=== PATIENT | female | born 2000 | race Two or more races ===

== ENCOUNTER 2024-01-17 14:33 | Emergency (ER) | payer OTHER ==
[~2024-01-17] VITALS: Ht 162.6 cm; Wt 67.6 kg
[~2024-01-17 14:33] MED LIST: ONDANSETRON ODT8 MG PO; PEPCID AC20 MG PO; ZOLOFT50 MG PO
[2024-01-17 15:22] LABS: HEMATOCRIT 40.2 % (36.0-45.00); HEMOGLOBIN 13.7 g/dL (12.0-15.00); MEAN CELL VOLUME 82.6 fL (80.00-100.00); MEAN CORPUSCULAR HEMOGLOBIN 28.2 pg (27.00-32.0); MEAN CORPUSCULAR HGB CONC 34.2 g/dl (32.0-36.0); PLATELET COUNT 292 K/uL (150-450); RED BLOOD COUNT 4.86 M/uL (4.00-6.00); RED CELL DISTRIBUTION WIDTH 12.6 % (11.5-14.5)
[2024-01-17 15:30] LABS: PH,URINE 6.5 (5.0-8.0); URINE APPEARANCE Clear; URINE BILIRRUBIN Negative (NEGATIVE); URINE BLOOD Negative; URINE COLOR Yellow; URINE GLUCOSE Negative (NEGATIVE); URINE LEUKOCYTE Trace; URINE NITRATE Negative; URINE PROTEIN Negative (NEGATIVE); URINE UROBILINOGEN 0.2 E.U./dl
[2024-01-17 15:32] LABS: URINE BACTERIA 437.1 uL (0.0-1933); URINE EPITHELIAL CELLS 22.4 uL (0.0-38.8); URINE RBC 10.5 uL (0.0-20.8)
[2024-01-17 15:58] LABS: ALBUMIN 3.8 gm/dL (3.4-5.0); ALKALINE PHOSPHATASE 118 U/L (50-136); ALT/SGPT 21 U/L (12-78); ANION GAP 12 (10.0-20.0); AST/SGOT 12 U/L (15-37); BILIRUBIN TOTAL 0.46 mg/dL (0.3-1.2); BLOOD UREA NITROGEN 8 mg/dL (7-18); BUN CREA RATIO 13 (7.0-25.0); CALCIUM 8.8 mg/dL (8.5-10.1); CARBON DIOXIDE 29 mEq/L (21-32); CHLORIDE 105 mmol/L (98-107); CREATININE SERUM 0.63 mg/dL (0.55-1.02); GLOBULINA 4.4 G/DL (2.4-3.5); GLUCOSE FASTING 92 mg/dL (65-100); OSMOLALITY SERUM 283 MOSM/KG (275-295); POTASSIUM 3.34 mEq/L (3.5-5.1); SODIUM 143 mmol/L (136-145); TOTAL PROTEIN 8.2 gm/dL (6.4-8.2)
[2024-01-17 16:03] LABS: HCG QUANTITATIVE < 1 mUI/mL (1-3)
== END 2024-01-17 15:39 | disposition home or self-care (01) ==
LOC: ER 14:33
PROVIDERS: Emergency Medicine
DX: K21.9 Gastro-esophageal reflux disease without esophagitis (principal); Z88.2 Allergy status to sulfonamides; F41.8 Other specified anxiety disorders

== ENCOUNTER 2024-03-28 01:15 | Outpatient (CLI) | payer OTHER | END 2024-03-28 02:00 | disposition home or self-care (01) | LOC: PPH VACUNA 01:15 | PROVIDERS: ATTEND Emergency Medicine Pediatric Emergency Medicine | DX: Z23 Encounter for immunization (principal) ==

== ENCOUNTER 2024-03-31 19:01 | Emergency (ER) | payer OTHER ==
[~2024-03-31] VITALS: Ht 162.6 cm; Wt 70.3 kg
[2024-03-31] MEDS ORDERED: ACYCLOVIR 800 MG TABLET PO STA (19:09)
== END 2024-03-31 20:52 | disposition home or self-care (01) ==
LOC: ER 19:02
DX: B00.89 Other herpesviral infection (principal); Z88.2 Allergy status to sulfonamides

== ENCOUNTER 2024-04-18 15:38 | Emergency (ER) | payer OTHER ==
[~2024-04-18] VITALS: Ht 162.6 cm; Wt 68.9 kg
[2024-04-18 15:43] VITALS: BP 104/73; O2SAT 99
[2024-04-18 16:40] LABS: HEMATOCRIT 40.6 % (36.0-45.00); HEMOGLOBIN 13.9 g/dL (12.0-15.00); MEAN CELL VOLUME 83.4 fL (80.00-100.00); MEAN CORPUSCULAR HEMOGLOBIN 28.4 pg (27.00-32.0); MEAN CORPUSCULAR HGB CONC 34.1 g/dl (32.0-36.0); PLATELET COUNT 262 K/uL (150-450); RED BLOOD COUNT 4.87 M/uL (4.00-6.00); RED CELL DISTRIBUTION WIDTH 12.3 % (11.5-14.5)
[2024-04-18] MEDS ORDERED: KETOROLAC TROMETHAMINE 60 MG VIAL IM ONE (16:45)
[2024-04-18] MEDS ORDERED: 0.9 % SODIUM CHLORIDE 1,000 ML IV ONE (16:45)
[2024-04-18 17:30] LABS: ALKALINE PHOSPHATASE 80 U/L (50-136); ALT/SGPT 15 U/L (12-78); ANION GAP 9 (10.0-20.0); AST/SGOT 13 U/L (15-37); BILIRUBIN TOTAL 0.79 mg/dL (0.3-1.2); BLOOD UREA NITROGEN 12 mg/dL (7-18); BUN CREA RATIO 17 (7.0-25.0); CALCIUM 9.1 mg/dL (8.5-10.1); CARBON DIOXIDE 28 mEq/L (21-32); CHLORIDE 106 mmol/L (98-107); GLOBULINA 4.2 G/DL (2.4-3.5); GLUCOSE FASTING 80 mg/dL (65-100); OSMOLALITY SERUM 276 MOSM/KG (275-295); POTASSIUM 3.84 mEq/L (3.5-5.1); SODIUM 139 mmol/L (136-145); TOTAL PROTEIN 8.2 gm/dL (6.4-8.2)
[2024-04-18 17:44] LABS: HCG QUANTITATIVE < 1 mUI/mL (1-3)
[2024-04-18 17:47] LABS: URINE APPEARANCE Turbid; URINE BILIRRUBIN Small (NEGATIVE); URINE BLOOD Moderate; URINE COLOR Orange; URINE GLUCOSE Negative (NEGATIVE); URINE KETONE 15 (NEGATIVE); URINE LEUKOCYTE Trace; URINE NITRATE Negative; URINE PROTEIN Trace (NEGATIVE)
[2024-04-18 17:50] LABS: URINE BACTERIA 2256.6 uL (0.0-1933); URINE WBC 43.5 uL (0.0-23.2)
[2024-04-18 18:33] LABS: URINE CAST 1.06 uL (0.0-1.40); URINE CRYSTALS MANY /HPF
[2024-04-18] MEDS ORDERED: KETO10TA2 PO (20:32)
== END 2024-04-18 21:25 | disposition home or self-care (01) ==
LOC: ER 15:39
PROVIDERS: General Practice
DX: R10.2 Pelvic and perineal pain (principal); Z88.2 Allergy status to sulfonamides

== ENCOUNTER 2024-06-15 06:17 | Emergency (ER) | payer OTHER ==
[~2024-06-15] VITALS: Ht 162.6 cm; Wt 68.0 kg
[~2024-06-15 06:17] MED LIST changes: +KETO10TA2 PO
[2024-06-15] MEDS ORDERED: KETOROLAC TROMETHAMINE 60 MG VIAL IM STA (06:39)
[2024-06-15] MEDS ORDERED: ACETAMINOPHEN 500 MG GEL..CAP PO STA (06:39)
[2024-06-15 08:12] LABS: URINE APPEARANCE Cloudy; URINE BILIRRUBIN Negative (NEGATIVE); URINE BLOOD Large; URINE COLOR Dark Yellow; URINE GLUCOSE Negative (NEGATIVE); URINE KETONE Trace (NEGATIVE); URINE LEUKOCYTE Trace; URINE NITRATE Negative; URINE PROTEIN 30 (NEGATIVE); URINE UROBILINOGEN 0.2 E.U./dl
[2024-06-15 08:13] LABS: URINE RBC 262.6 uL (0.0-20.8); URINE WBC 37.6 uL (0.0-23.2)
[2024-06-15 08:17] LABS: HEMATOCRIT 42.2 % (36.0-45.00); HEMOGLOBIN 13.8 g/dL (12.0-15.00); MEAN CELL VOLUME 85.8 fL (80.00-100.00); MEAN CORPUSCULAR HEMOGLOBIN 28.2 pg (27.00-32.0); MEAN CORPUSCULAR HGB CONC 32.8 g/dl (32.0-36.0); PLATELET COUNT 303 K/uL (150-450); RED BLOOD COUNT 4.92 M/uL (4.00-6.00); RED CELL DISTRIBUTION WIDTH 12.4 % (11.5-14.5)
[2024-06-15 09:29] LABS: URINE CAST 0.44 uL (0.0-1.40)
== END 2024-06-15 08:22 | disposition home or self-care (01) ==
LOC: ER 06:17
DX: R10.2 Pelvic and perineal pain (principal); Z88.2 Allergy status to sulfonamides

== ENCOUNTER 2024-07-02 13:27 | Outpatient (CLI) | payer OTHER ==
[2024-07-02 14:15] LABS: HEMATOCRIT 40.1 % (36.0-45.00); HEMOGLOBIN 13.1 g/dL (12.0-15.00); MEAN CORPUSCULAR HEMOGLOBIN 28.2 pg (27.00-32.0); MEAN CORPUSCULAR HGB CONC 32.8 g/dl (32.0-36.0); PLATELET COUNT 263 K/uL (150-450); RED BLOOD COUNT 4.67 M/uL (4.00-6.00); RED CELL DISTRIBUTION WIDTH 12.4 % (11.5-14.5)
[2024-07-02 14:33] LABS: INR 0.98; PARTIAL THROMBOPLASTIN TIME 27.7 SECONDS (22.0-34.0); PROTHROMBIN TIME 10.7 SECONDS (9.0-11.5)
[2024-07-02 14:48] LABS: ALBUMIN 3.5 gm/dL (3.4-5.0); BILIRUBIN TOTAL 0.44 mg/dL (0.3-1.2); CALCIUM 8.7 mg/dL (8.5-10.1); CHOL HDL RATIO 3.9 (0-5.0); CREATININE SERUM 0.62 mg/dL (0.55-1.02); GFR 118.26; GLOBULINA 3.8 G/DL (2.4-3.5); POTASSIUM 3.83 mEq/L (3.5-5.1); TOTAL PROTEIN 7.3 gm/dL (6.4-8.2); TSH 1.75 uIU/mL (0.358-3.74)
== END 2024-07-02 13:32 | disposition home or self-care (01) ==
LOC: LAB 13:27
DX: R10.2 Pelvic and perineal pain (principal); R10.9 Unspecified abdominal pain

== ENCOUNTER 2024-07-07 05:11 | Emergency (ER) | payer OTHER ==
[~2024-07-07] VITALS: Ht 162.6 cm; Wt 68.0 kg
[2024-07-07] MEDS ORDERED: 0.9 % SODIUM CHLORIDE 1,000 ML IV STA (05:37)
[2024-07-07] MEDS ORDERED: FAMOtidine 10 MG/ML (4ML VIAL) IV PUSH STA (05:38)
[2024-07-07] MEDS ORDERED: MEPERIDINE HCL 25 MG/ML AMPUL IM STA (05:38)
[2024-07-07] MEDS ORDERED: PROMETHAZINE HCL 50 MG/ML AMPUL IM STA (05:38)
[2024-07-07] MEDS ORDERED: KETOROLAC TROMETHAMINE 30 MG VIAL IV STA (05:40)
[2024-07-07] MEDS ORDERED: HYOSCYAMINE SULFATE 0.125 MG TAB.SUBL SL ONE (05:45)
[2024-07-07 07:51] LABS: HEMATOCRIT 43.2 % (36.0-45.00); HEMOGLOBIN 14.6 g/dL (12.0-15.00); MEAN CELL VOLUME 84.1 fL (80.00-100.00); MEAN CORPUSCULAR HEMOGLOBIN 28.5 pg (27.00-32.0); MEAN CORPUSCULAR HGB CONC 33.9 g/dl (32.0-36.0); PLATELET COUNT 285 K/uL (150-450); RED BLOOD COUNT 5.14 M/uL (4.00-6.00); RED CELL DISTRIBUTION WIDTH 12.5 % (11.5-14.5)
[2024-07-07 08:33] LABS: ALBUMIN 3.8 gm/dL (3.4-5.0); BILIRUBIN TOTAL 0.9 mg/dL (0.3-1.2); CALCIUM 9.3 mg/dL (8.5-10.1); CREATININE SERUM 0.7 mg/dL (0.55-1.02); GFR 102.8; GLOBULINA 3.9 G/DL (2.4-3.5); POTASSIUM 3.94 mEq/L (3.5-5.1); TOTAL PROTEIN 7.7 gm/dL (6.4-8.2)
[2024-07-07] MEDS ORDERED: METOCLOPRAMIDE HCL 5 MG/ML VIAL IM ONE (09:15)
[2024-07-07] MEDS ORDERED: PANTOPRAZOLE SODIUM 40 MG/VIAL VIAL IV PUSH ONE (09:15)
[2024-07-07] MEDS ORDERED: ONDANSETRON HCL 2 MG/ML VIAL IV ONE (09:15)
== END 2024-07-07 10:47 | disposition home or self-care (01) ==
LOC: ER 05:11
DX: K52.9 Noninfective gastroenteritis and colitis, unspecified (principal); Z88.2 Allergy status to sulfonamides; Z20.822 Contact with and (suspected) exposure to COVID-19

== ENCOUNTER 2024-07-16 15:52 | Outpatient (CLI) | payer OTHER ==
[2024-07-16 16:37] LABS: HEMATOCRIT 40.9 % (36.0-45.00); HEMOGLOBIN 13.5 g/dL (12.0-15.00); MEAN CELL VOLUME 84.6 fL (80.00-100.00); MEAN CORPUSCULAR HGB CONC 33.1 g/dl (32.0-36.0); PLATELET COUNT 281 K/uL (150-450); RED BLOOD COUNT 4.83 M/uL (4.00-6.00); RED CELL DISTRIBUTION WIDTH 12.5 % (11.5-14.5)
[2024-07-16 17:05] LABS: MYCOPLASMA PNEUMONIAE IGM REACTIVE (NO REACTIVE)
== END 2024-07-16 16:04 | disposition home or self-care (01) ==
LOC: LAB 15:52
PROVIDERS: ATTEND General Practice
DX: Z20.828 Contact with and (suspected) exposure to other viral communicable diseases (principal); A49.3 Mycoplasma infection, unspecified site; R50.9 Fever, unspecified